=== PATIENT | male | born 1955 | race Caucasian/White ===

== ENCOUNTER 2017-08-29 12:39 | Inpatient (IN) | payer OTHER ==
[2017-08-29 14:33] VITALS: BMI 27.1
[2017-08-29] MEDS ORDERED: MAG HYDROX/AL HYDROX/SIMETH 30 ML UNIT-DOSE CUP PO PRN (16:16)
[2017-08-29] MEDS ORDERED: guaiFENesin/D-METHORPHAN HB 10 ML UNIT-DOSE CUPS PO PRN (16:16)
[2017-08-29] MEDS ORDERED: ACETAMINOPHEN 325 MG TABLET (FP) PO PRN (16:16)
[2017-08-29] MEDS ORDERED: IBUPROFEN 400 MG TABLET (FP) PO PRN (16:16)
[2017-08-29] MEDS ORDERED: chlordiazePOXIDE HCL 25 MG CAPSULE PO PRN (16:16)
[2017-08-29] MEDS ORDERED: hydrOXYzine PAMOATE 50 MG CAPSULE (FP) PO PRN (16:16)
[2017-08-29] MEDS ORDERED: P-EPHED 60MG/TRIPROLIDI 2.5MG TABLET PO PRN (16:16)
[2017-08-29] MEDS ORDERED: NICOTINE POLACRILEX 2 MG GUM BC PRN (16:16)
[2017-08-29] MEDS ORDERED: MENTHOL/PHENOL 1 EACH UD MM PRN (16:16)
[2017-08-29] MEDS ORDERED: LOPERAMIDE HCL 2 MG CAPSULE PO PRN (16:16)
[2017-08-29] MEDS ORDERED: MAGNESIUM HYDROX 2400MG/30ML ORAL SUSPENSION 30 ML CUP PO PRN (16:16)
[2017-08-29] MEDS ORDERED: MAGNESIUM CITRATE 300 ML BOTTLE PO PRN (16:16)
--- NOTE | 2017-08-29 16:25 | HP ---
CIWA Score - CIWA Score Nausea/Vomitin Muscle Tremors: 2 Anxiety: 4-Mod. Anxious/Guarded Agitation: 4-Moderately Restless Paroxysmal Sweats: 3 Orientation: 0-Oriented Tacttile Disturbances: 1-Very Mild Itch/Numbness Auditory Disturbances: 0-None Visual Disturbances: 0-None Headache: 1-Very Mild CIWA-Ar Total Score: 18 Admission ROS BHS - HPI Chief Complaint: alcohol withdrawal sx Allergies/Adverse Reactions: Allergies Allergy/AdvReac Type Severity Reaction Status Date / Time tramadol Allergy Severe Rash Verified 08/29/17 16:13 History of Present Illness: 61yo m w h/o chronic alcoholism and cocaine [facility] of alcohol withdrwal sx whne he does not drink, PMHX s/p ca prostate, htn, former smoker no si at this tiem , no h/o seizures or dts. Exam Limitations: No Limitations - Ebola screening Have you traveled outside of the country in the last 21 days: No Have you had contact with anyone from an Ebola affected area: No Have you been sick,other than usual withdrawal symptoms: No Do you have a fever: No - Review of Systems Constitutional: Chills, Diaphoresis, Night Sweats, Changes in sleep, Unintentional Wgt. Loss EENT: reports: No Symptoms Reported Respiratory: reports: No Symptoms reported Cardiac: reports: No Symptoms Reported GI: reports: Diarrhea, Nausea, Poor Appetite, Poor Fluid Intake, Vomiting, Indigestion, Abdominal cramping : reports: Frequency, Incontinence (s/p prstate surgery incontinnent), Urgency , Other (sexual dysfunction reported) Musculoskeletal: reports: No Symptoms Reported Integumentary: reports: Flushing, Sweating Neuro: reports: Headache, Numbness, Paresthesia, Tremors, Weakness Endocrine: reports: Increased Thirst Hematology: reports: No Symptoms Reported Psychiatric: reports: Judgement Intact, Mood/Affect Appropiate, Orientated x3, Anxious, Depressed Other Systems: Reviewed and Negative Patient History - Patient Medical History Hx Anemia: No Hx Asthma: No Hx Chronic Obstructive Pulmonary Disease (COPD): No Hx Cancer: Yes (ca prostate s/po surgery 2 years ago) Hx Cardiac Disorders: No Hx Congestive Heart Failure: No Hx Hypertension: Yes Hx Hypercholesterolemia: No Hx Pacemaker: No HX Cerebrovascular Accident: No Hx Seizures: No Hx Dementia: No Hx Diabetes: No Hx Gastrointestinal Disorders: Yes (GERD) Hx Liver Disease: No Hx Genitourinary Disorders: No Hx Sexually Transmitted Disorders: No Hx Renal Disease (ESRD): No Hx Thyroid Disease: No Hx Human Immunodeficiency Virus (HIV): No Hx Hepatitis C: No Hx Depression: Yes Hx Suicide Attempt: No (no si at this time) Hx Bipolar Disorder: No Hx Schizophrenia: No - Patient Surgical History Past Surgical History: Yes Hx Genitourinary Surgery: Yes (ca prostate 2 years ago [facility]) Hx Section: No Hx Orthopedic Surgery: Yes (ORIF x3 left ankle lower leg s/p trauma) Hx Hysterectomy: No Anesthesia Reaction: No - PPD History Previous Implant?: Yes Documented Results: Negative w/o proof Implanted On Prior R Admission?: Yes PPD to be Administered?: Yes - Reproductive History Patient is a Female of Child Bearing Age (11 -55 yrs old): No Patient : No - Smoking Cessation Smoking history: Former smoker Have you smoked in the past 12 months: No If you are a former smoker, when did you quit?: 5 years gianni Hx Chewing Tobacco Use: No Initiated information on smoking cessation: No 'Breaking Loose' booklet given: 08/29/17 - Substance & Tx. History Hx Alcohol Use: Yes Hx Substance Use: Yes Substance Use Type: Alcohol, Cocaine Hx Substance Use Treatment: Yes (1st admission [facility]) - Substances Abused Cocaine Route: Inhalation Frequency: 1-2 times per week Amount used: $40 Age of first use: 51 Date of Last Use: 08/29/17 Alcohol-beer Route: Oral Frequency: Daily Amount used: 1-6 pk. Age of first use: 19 Date of Last Use: 08/29/17 Family Disease History - Family Disease History Family Disease History: Diabetes: Brother, Sister Admission Physical Exam BHS - Vital Signs Vital Signs: Vital Signs - 24 hr 08/29/17 14:28 Temperature 96.1 F L Pulse Rate 61 Respiratory 18 Rate Blood Pressure 144/85 - Physical General Appearance: Yes: Nourished, Appropriately Dressed, Disheveled, Mild Distress, Thin, Tremorous, Irritable, Sweating, Anxious HEENTM: Yes: Within Normal Limits, EOMI, Hearing grossly Normal, Normal ENT Inspection, Normocephalic, Normal Voice, OWEN, Pharynx Normal Respiratory: Yes: Within Normal Limits, Chest Non-Tender, Lungs Clear, Normal Breath Sounds, No Respiratory Distress, No Accessory Muscle Use Neck: Yes: Within Normal Limits, No masses,lesions,Nodules, Supple, Trachea in good position Breast: Yes: Breast Exam Deferred Cardiology: Yes: Within Normal Limits, Regular Rhythm, Regular Rate, S1, S2 Abdominal: Yes: Normal Bowel Sounds, Non Tender, Flat, Soft, Increased Bowel Sounds, Protuberent, Distended Genitourinary: Yes: Frequency, Uregency, Dribblimg, Incontinient, Other (s/p prostate surgery wears pampers) Back: Yes: Within Normal Limits, Normal Inspection Musculoskeletal: Yes: Within Normal Limits, full range of Motion, Gait Steady Extremities: Yes: Normal Capillary Refill, Normal Range of Motion, Non-Tender, Tremors 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 intact, Fully Oriented, Alert, Motor Strength 5/5, Normal Response, Depressed Affect Integumentary: Yes: Normal Color, Warm, Diaphoresis, Moist Lymphatic: Yes: Within Normal Limits - Addiitonal Findings: withdrawal sx - Diagnostic (1) Alcohol dependence with uncomplicated withdrawal Current Visit: Yes Status: Acute (2) Cocaine abuse Current Visit: Yes Status: Acute (3) Prostate cancer Current Visit: Yes Status: Acute (4) Nicotine dependence in remission Current Visit: Yes Status: Acute (5) Depression Current Visit: Yes Status: Acute (6) Essential (primary) hypertension Current Visit: Yes Status: Acute (7) GERD (gastroesophageal reflux disease) Current Visit: Yes Status: Acute Cleared for Admission [facility] - Detox or Rehab [facility] Level of Care: Medically Managed Detox Regimen/Protocol: Librium [facility] Breath Alcohol Content Breath Alcohol Content: 0 Urine Drug Screen - Results Drug Screen Negative: No Urine Drug Screen Results: ELIANE-Cocaine
[2017-08-29] MEDS ORDERED: NICOTINE 14 MG/24 HOURS TOPICAL PATCH TD SCH (16:30)
[2017-08-29] MEDS ORDERED: chlordiazePOXIDE HCL 25 MG CAPSULE PO ONE (17:45)
[2017-08-29] MEDS: THIAMINE HCL 100 MG TABLET (FP) PO SCH (22:42)
[2017-08-29] MEDS: TAMSULOSIN HCL 0.4 MG CAP.ER.24H (FP) PO SCH (22:42)
[2017-08-29] MEDS: chlordiazePOXIDE HCL 25 MG CAPSULE PO SCH (22:42)
[2017-08-30 00:28] LABS: URINE APPEARANCE CLEAR; URINE BILIRUBIN NEGATIVE (NEGATIVE); URINE BLOOD NEGATIVE (NEGATIVE); URINE COLOR STRAW; URINE GLUCOSE (UA) NEGATIVE (NEGATIVE); URINE KETONE NEGATIVE (NEGATIVE); URINE LEUK ESTERASE NEGATIVE (NEGATIVE); URINE NITRITE NEGATIVE (NEGATIVE); URINE PROTEIN NEGATIVE (NEGATIVE); URINE UROBILINOGEN NEGATIVE mg/dL (0.2-1.0)
[2017-08-30] MEDS: chlordiazePOXIDE HCL 25 MG CAPSULE PO SCH ×4 (05:55→22:38)
[2017-08-30] MEDS: PRENATAL VITAMINS W/ FOLIC ACID TABLET (FP) PO SCH (10:32)
[2017-08-30 11:17] LABS: HEMATOCRIT 39.3 % (35.4-49); HEMOGLOBIN 14.1 GM/dL (11.7-16.9); MCH 35.4 pg (25.7-33.7); MCHC 35.8 g/dl (32.0-35.9); MEAN CELL VOLUME 99.1 fl (80-96); MEAN PLT VOLUME 8.2 fl (7.5-11.1); PLATELET COUNT 88 K/MM3 (134-434); RBC 3.97 M/mm3 (4.00-5.60); RDW 12.3 % (11.9-15.9); WHITE BLOOD COUNT 3.4 K/mm3 (4.0-10.0)
[2017-08-30 11:18] LABS: ALBUMIN 2.9 g/dl (3.4-5.0); ANION GAP 7 (8-16); BILIRUBIN,TOTAL 0.9 mg/dL (0.2-1.0); CALCIUM 7.6 mg/dL (8.5-10.1); CHLORIDE 105 mmol/L (98-107); CO2 27 mmol/L (21-32); CREATININE 0.6 mg/dL (0.7-1.3); GLUCOSE,RANDOM 138 mg/dL (74-106); SODIUM 139 mmol/L (136-145)
[2017-08-30 11:20] LABS: ALK PHOS 300 U/L (45-117)
--- NOTE | 2017-08-30 11:56 | EKG ---
Test Reason : Blood Pressure : / mmHG Vent. Rate : 062 BPM Atrial Rate : 062 BPM P-R Int : 210 ms QRS Dur : 114 ms QT Int : 402 ms P-R-T Axes : 043 -55 021 degrees QTc Int : 408 ms SINUS RHYTHM WITH 1ST DEGREE A-V BLOCK INCOMPLETE RIGHT BUNDLE BRANCH BLOCK LEFT ANTERIOR FASCICULAR BLOCK SEPTAL INFARCT , AGE UNDETERMINED ABNORMAL ECG NO PREVIOUS ECGS AVAILABLE Confirmed by MD HERON, LISET ([id number]) on 08/30/2017 11:55:46 AM Referred By: Confirmed By:LISET SHELBY MD
--- NOTE | 2017-08-30 12:10 | CONSULT ---
[facility] Psychiatric Consult - Data Date of interview: 08/30/17 Admission source: [facility] Identifying data: First admission to [facility] for this 61 y/o Citizen Of [place]-born male seeking detox treatment on for alcohol and cocaine dependence.Patient is ,a father of four,homeless,unemployed and supported on Social Security benefits. Substance Abuse History: Confirmed by patient in this interview.Refer to this section of [facility] report for details : Smoking history: Former smoker. Have you smoked in the past 12 months: No. If you are a former smoker, when did you quit ?: 5 years gianni. Hx Chewing Tobacco Use: No. Initiated information on smoking cessation: No. 'Breaking Loose' booklet given: 08/29/17. - Substance & Tx. History. Hx Alcohol Use: Yes. Hx Substance Use: Yes. Substance Use Type: Alcohol, Cocaine. Hx Substance Use Treatment: Yes (1st admission [facility]). - Substances Abused. Cocaine. Route: Inhalation. Frequency: 1-2 times per week. Amount used: $40. Age of first use: 51. Date of Last Use: 08/29/17. * * Alcohol-beer. Route: Oral. Frequency: Daily. Amount used: 1-6 pk. Age of first use: 19. Date of Last Use: 08/29/17 Medical History: Hypertension,GERD,past surgery for prostatic cancer (two years ago) and orthosurgery for fracture of left ankle (open reduction/internal fixation). Psychiatric History: Patient denies. Physical/Sexual Abuse/Trauma History: Patient admits to several losses in his family (deaths of brothers,parents) over the years.No complaint of nightmares or flashbacks.Coping fairly well. Additional Comment: Urine Drug Screen Results: ELIANE-Cocaine.Noted. Mental Status Exam - Mental Status Exam Alert and Oriented to: Time, Place, Person Cognitive Function: Good Patient Appearance: Well Groomed Mood: Withdrawn, Hopeful Affect: Appropriate, Normal Range Patient Behavior: Fatigued, Appropriate, Cooperative Speech Pattern: Clear (more comfortable in amharic ; very limited yoruba proficiency), Appropriate Voice Loudness: Normal Thought Process: Intact, Goal Oriented Thought Disorder: Not Present Hallucinations: Denies Suicidal Ideation: Denies Homicidal Ideation: Denies Insight/Judgement: Poor Sleep: Poorly, Difficulty falling asleep Appetite: Good Muscle strength/Tone: Normal Gait/Station: Normal Psychiatric Findings - Problem List (Wells 1, 2,3) (1) Alcohol dependence with uncomplicated withdrawal Status: Acute (2) Cocaine abuse Status: Chronic (3) Nicotine dependence in remission Status: Suspected Qualifiers: Nicotine product type: cigarettes Qualified Code(s): F17.211 - Nicotine dependence, cigarettes, in remission (4) Insomnia Status: Chronic - Initial Treatment Plan Initial Treatment Plan: Psychoeducation.Sleep hygiene.Detoxification in progress.Ambien 10 mg po hs prn.Ordered.Patient is informed of the potential for parasomnias (sleep-walking).Mr Galarza agrees with this careplan.Observation.
[2017-08-30 13:24] LABS: POTASSIUM 3.7 mmol/L (3.5-5.1)
[2017-08-30 13:44] LABS: BLOOD UREA NITROGEN 15 mg/dL (7-18); TOT PROT 7.3 g/dl (6.4-8.2)
--- NOTE | 2017-08-30 15:06 | PN ---
S CIWA - CIWA Score Nausea/Vomitin-No Nausea/No Vomiting Muscle Tremors: 2 Anxiety: 4-Mod. Anxious/Guarded Agitation: 2 Paroxysmal Sweats: 3 Orientation: 0-Oriented Tacttile Disturbances: 2-Mild Itch/Numbness/Burn Auditory Disturbances: 0-None Visual Disturbances: 0-None Headache: 4-Moderately Severe CIWA-Ar Total Score: 17 BHS Progress Note (SOAP) Subjective: Sweating, H/A, Tremors, Body Aches. Objective: PATIENT A & O X 3, OBSERVED AMBULATING ON UNIT. NO ACUTE DISTRESS. 08/30/17 15:02 Vital Signs Temperature 96.7 F L 08/30/17 13:53 Pulse Rate 65 08/30/17 13:53 Respiratory Rate 18 08/30/17 13:53 Blood Pressure 137/93 08/30/17 13:53 O2 Sat by Pulse Oximetry (%) Laboratory Tests 08/29/17 08/30/17 08/30/17 21:22 07:50 07:50 WBC 3.4 L RBC 3.97 L Hgb 14.1 Hct 39.3 MCV 99.1 H MCH 35.4 H MCHC 35.8 RDW 12.3 Plt Count 88 L MPV 8.2 Sodium 139 Potassium 3.7 Chloride 105 Carbon Dioxide 27 Anion Gap 7 L BUN 15 Creatinine 0.6 L Creat Clearance w eGFR > 60 Random Glucose 138 H Calcium 7.6 L Total Bilirubin 0.9 AST TNP ALT TNP Alkaline Phosphatase 300 H Total Protein 7.3 Albumin 2.9 L Urine Color Straw Urine Appearance Clear Urine pH 5.0 Ur Specific [place] 1.006 Urine Protein Negative Urine Glucose (UA) Negative Urine Ketones Negative Urine Blood Negative Urine Nitrite Negative Urine Bilirubin Negative Urine Urobilinogen Negative Ur Leukocyte Esterase Negative LABS NOTED. Assessment: 08/30/17 15:02 WITHDRAWAL SYMPTOMS. Plan: CONTINUE DETOX. INCREASE DAILY PO FLUID INTAKE. BGM ACBK FOR ELEVATED ADMISSION RANDOM GLUCOSE LEVEL. HFP ON 09/01/2017 FOR ADMISSION HEPATIC ABNORMALITIES.
[2017-08-30] MEDS: TAMSULOSIN HCL 0.4 MG CAP.ER.24H (FP) PO SCH (22:38)
[2017-08-30] MEDS: ZOLPIDEM TARTRATE 5 MG TABLET PO PRN (22:38)
[2017-08-30] MEDS: THIAMINE HCL 100 MG TABLET (FP) PO SCH (22:38)
[2017-08-31] MEDS: chlordiazePOXIDE HCL 25 MG CAPSULE PO SCH ×3 (05:48→18:12)
[2017-08-31] MEDS: PRENATAL VITAMINS W/ FOLIC ACID TABLET (FP) PO SCH (10:42)
--- NOTE | 2017-08-31 14:30 | EKG ---
Test Reason : Blood Pressure : / mmHG Vent. Rate : 066 BPM Atrial Rate : 066 BPM P-R Int : 198 ms QRS Dur : 112 ms QT Int : 412 ms P-R-T Axes : 027 -45 010 degrees QTc Int : 431 ms NORMAL SINUS RHYTHM INCOMPLETE RIGHT BUNDLE BRANCH BLOCK LEFT ANTERIOR FASCICULAR BLOCK ABNORMAL ECG Confirmed by MD HERON, LISET ([id number]) on 08/31/2017 2:29:35 PM Referred By: Confirmed By:LISET SHELBY MD
--- NOTE | 2017-08-31 15:06 | PN ---
[facility] CIWA - CIWA Score Nausea/Vomitin-Int. Nausea w/Dry Heave Muscle Tremors: 4-Moderate,w/Arms Extend Anxiety: 3 Agitation: 3 Paroxysmal Sweats: 3 Orientation: 0-Oriented Tacttile Disturbances: 1-Very Mild Itch/Numbness Auditory Disturbances: 0-None Visual Disturbances: 0-None Headache: 0-None Present CIWA-Ar Total Score: 18 BHS Progress Note (SOAP) Subjective: Dizziness, sweating, anxious Objective: 08/31/17 15:04 Last Vital Signs Temp Pulse Resp BP Pulse Ox 98.5 F 77 18 130/86 08/31/17 09:52 08/31/17 09:52 08/31/17 09:52 08/31/17 09:52 Laboratory Tests 08/29/17 08/30/17 08/30/17 21:22 07:50 07:50 WBC 3.4 L RBC 3.97 L Hgb 14.1 Hct 39.3 MCV 99.1 H MCH 35.4 H MCHC 35.8 RDW 12.3 Plt Count 88 L MPV 8.2 Sodium 139 Potassium 3.7 Chloride 105 Carbon Dioxide 27 Anion Gap 7 L BUN 15 Creatinine 0.6 L Creat Clearance w eGFR > 60 POC Glucometer Random Glucose 138 H Calcium 7.6 L Total Bilirubin 0.9 AST TNP ALT TNP Alkaline Phosphatase 300 H Total Protein 7.3 Albumin 2.9 L Urine Color Straw Urine Appearance Clear Urine pH 5.0 Ur Specific [place] 1.006 Urine Protein Negative Urine Glucose (UA) Negative Urine Ketones Negative Urine Blood Negative Urine Nitrite Negative Urine Bilirubin Negative Urine Urobilinogen Negative Ur Leukocyte Esterase Negative RPR Titer 08/30/17 08/31/17 07:50 06:51 WBC RBC Hgb Hct MCV MCH MCHC RDW Plt Count MPV Sodium Potassium Chloride Carbon Dioxide Anion Gap BUN Creatinine Creat Clearance w eGFR POC Glucometer 123 Random Glucose Calcium Total Bilirubin AST ALT Alkaline Phosphatase Total Protein Albumin Urine Color Urine Appearance Urine pH Ur Specific [place] Urine Protein Urine Glucose (UA) Urine Ketones Urine Blood Urine Nitrite Urine Bilirubin Urine Urobilinogen Ur Leukocyte Esterase RPR Titer Nonreactive Labs noted Assessment: 08/31/17 15:05 Withdrawal symptoms Plan: Continue detox Encouraged to drink more water for hydration
[2017-08-31] MEDS: THIAMINE HCL 100 MG TABLET (FP) PO SCH (22:34)
[2017-08-31] MEDS: ZOLPIDEM TARTRATE 5 MG TABLET PO PRN (22:34)
[2017-08-31] MEDS: TAMSULOSIN HCL 0.4 MG CAP.ER.24H (FP) PO SCH (22:34)
[2017-08-31] MEDS: chlordiazePOXIDE 5 MG CAPSULE PO SCH (22:35)
[2017-09-01] MEDS: chlordiazePOXIDE 5 MG CAPSULE PO SCH ×3 (06:08→17:42)
[2017-09-01 10:25] LABS: ALBUMIN 2.8 g/dl (3.4-5.0); BILIRUBIN,DIRECT 0.2 mg/dL (0.0-0.2)
[2017-09-01 10:27] LABS: BILIRUBIN,TOTAL 0.5 mg/dL (0.2-1.0); TOT PROT 6.9 g/dl (6.4-8.2)
[2017-09-01] MEDS: PRENATAL VITAMINS W/ FOLIC ACID TABLET (FP) PO SCH (10:33)
--- NOTE | 2017-09-01 12:26 | PN ---
BHS Progress Note (SOAP) Subjective: SLIGHT ANXIETY,SWEATS,FATIGUE. Objective: 09/01/17 12:28 Vital Signs Temperature 97.5 F L 09/01/17 09:51 Pulse Rate 80 09/01/17 09:51 Respiratory Rate 18 09/01/17 09:51 Blood Pressure 138/85 09/01/17 09:51 O2 Sat by Pulse Oximetry (%) Laboratory Last Values WBC 3.4 K/mm3 (4.0-10.0) L 08/30/17 07:50 RBC 3.97 M/mm3 (4.00-5.60) L 08/30/17 07:50 Hgb 14.1 GM/dL (11.7-16.9) 08/30/17 07:50 Hct 39.3 % (35.4-49) 08/30/17 07:50 MCV 99.1 fl (80-96) H 08/30/17 07:50 MCH 35.4 pg (25.7-33.7) H 08/30/17 07:50 MCHC 35.8 g/dl (32.0-35.9) 08/30/17 07:50 RDW 12.3 % (11.9-15.9) 08/30/17 07:50 Plt Count 88 K/MM3 (134-434) L 08/30/17 07:50 MPV 8.2 fl (7.5-11.1) 08/30/17 07:50 Sodium 139 mmol/L (136-145) 08/30/17 07:50 Potassium 3.7 mmol/L (3.5-5.1) 08/30/17 07:50 Chloride 105 mmol/L (98-107) 08/30/17 07:50 Carbon Dioxide 27 mmol/L (21-32) 08/30/17 07:50 Anion Gap 7 (8-16) L 08/30/17 07:50 BUN 15 mg/dL (7-18) 08/30/17 07:50 Creatinine 0.6 mg/dL (0.7-1.3) L 08/30/17 07:50 Creat Clearance w eGFR > 60 (>60) 08/30/17 07:50 POC Glucometer 136 UNITS (80-120) 09/01/17 06:10 Random Glucose 138 mg/dL (74-106) H 08/30/17 07:50 Calcium 7.6 mg/dL (8.5-10.1) L 08/30/17 07:50 Total Bilirubin 0.5 mg/dL (0.2-1.0) D 09/01/17 07:00 Direct Bilirubin 0.2 mg/dL (0.0-0.2) 09/01/17 07:00 AST 77 U/L (15-37) H 09/01/17 07:00 ALT 67 U/L (12-78) 09/01/17 07:00 Alkaline Phosphatase 338 U/L (45-117) H 09/01/17 07:00 Total Protein 6.9 g/dl (6.4-8.2) 09/01/17 07:00 Albumin 2.8 g/dl (3.4-5.0) L 09/01/17 07:00 Urine Color Straw 08/29/17 21:22 Urine Appearance Clear 08/29/17 21:22 Urine pH 5.0 (5.0-8.0) 08/29/17 21:22 Ur Specific [place] 1.006 (1.001-1.035) 08/29/17 21:22 Urine Protein Negative (NEGATIVE) 08/29/17 21:22 Urine Glucose (UA) Negative (NEGATIVE) 08/29/17 21:22 Urine Ketones Negative (NEGATIVE) 08/29/17 21:22 Urine Blood Negative (NEGATIVE) 08/29/17 21:22 Urine Nitrite Negative (NEGATIVE) 08/29/17 21:22 Urine Bilirubin Negative (NEGATIVE) 08/29/17 21:22 Urine Urobilinogen Negative mg/dL (0.2-1.0) 08/29/17 21:22 Ur Leukocyte Esterase Negative (NEGATIVE) 08/29/17 21:22 RPR Titer Nonreactive (NONREACTIVE) 08/30/17 07:50 Assessment: 09/01/17 12:28 WITHDRAWAL SX Plan: CONTINUE DETOX
[2017-09-01] MEDS: chlordiazePOXIDE HCL 10 MG CAPSULE PO SCH (22:10)
[2017-09-01] MEDS: TAMSULOSIN HCL 0.4 MG CAP.ER.24H (FP) PO SCH (22:10)
[2017-09-01] MEDS: THIAMINE HCL 100 MG TABLET (FP) PO SCH (22:10)
[2017-09-01] MEDS: ZOLPIDEM TARTRATE 5 MG TABLET PO PRN (22:10)
[2017-09-02] MEDS: chlordiazePOXIDE HCL 10 MG CAPSULE PO SCH ×2 (05:32→10:21)
[2017-09-02 06:20] VITALS: BP 148/86; PULSE 81; TEMP 97.4
[2017-09-02] MEDS: PRENATAL VITAMINS W/ FOLIC ACID TABLET (FP) PO SCH (10:21)
--- NOTE | 2017-09-02 13:13 | DS ---
[facility] Detox Discharge Summary Admission Date: 08/29/17 Discharge Date: 09/02/17 - History Present History: Alcohol Dependence Additional Comments: DETOX COMPLETED. ALERT O X 3. NAD. Pertinent Past History: SEE DX BELOW - Physical Exam Results Vital Signs: Vital Signs Temperature 97.4 F L 09/02/17 06:19 Pulse Rate 81 09/02/17 06:19 Respiratory Rate 21 09/02/17 06:19 Blood Pressure 148/86 09/02/17 06:19 O2 Sat by Pulse Oximetry (%) Pertinent Admission Physical Exam Findings: WITHDRAWAL SX Laboratory Last Values WBC 3.4 K/mm3 (4.0-10.0) L 08/30/17 07:50 RBC 3.97 M/mm3 (4.00-5.60) L 08/30/17 07:50 Hgb 14.1 GM/dL (11.7-16.9) 08/30/17 07:50 Hct 39.3 % (35.4-49) 08/30/17 07:50 MCV 99.1 fl (80-96) H 08/30/17 07:50 MCH 35.4 pg (25.7-33.7) H 08/30/17 07:50 MCHC 35.8 g/dl (32.0-35.9) 08/30/17 07:50 RDW 12.3 % (11.9-15.9) 08/30/17 07:50 Plt Count 88 K/MM3 (134-434) L 08/30/17 07:50 MPV 8.2 fl (7.5-11.1) 08/30/17 07:50 Sodium 139 mmol/L (136-145) 08/30/17 07:50 Potassium 3.7 mmol/L (3.5-5.1) 08/30/17 07:50 Chloride 105 mmol/L (98-107) 08/30/17 07:50 Carbon Dioxide 27 mmol/L (21-32) 08/30/17 07:50 Anion Gap 7 (8-16) L 08/30/17 07:50 BUN 15 mg/dL (7-18) 08/30/17 07:50 Creatinine 0.6 mg/dL (0.7-1.3) L 08/30/17 07:50 Creat Clearance w eGFR > 60 (>60) 08/30/17 07:50 POC Glucometer 209 UNITS (80-120) 09/02/17 05:34 Random Glucose 138 mg/dL (74-106) H 08/30/17 07:50 Calcium 7.6 mg/dL (8.5-10.1) L 08/30/17 07:50 Total Bilirubin 0.5 mg/dL (0.2-1.0) D 09/01/17 07:00 Direct Bilirubin 0.2 mg/dL (0.0-0.2) 09/01/17 07:00 AST 77 U/L (15-37) H 09/01/17 07:00 ALT 67 U/L (12-78) 09/01/17 07:00 Alkaline Phosphatase 338 U/L (45-117) H 09/01/17 07:00 Total Protein 6.9 g/dl (6.4-8.2) 09/01/17 07:00 Albumin 2.8 g/dl (3.4-5.0) L 09/01/17 07:00 Urine Color Straw 08/29/17 21:22 Urine Appearance Clear 08/29/17 21:22 Urine pH 5.0 (5.0-8.0) 08/29/17 21:22 Ur Specific [place] 1.006 (1.001-1.035) 08/29/17 21:22 Urine Protein Negative (NEGATIVE) 08/29/17 21:22 Urine Glucose (UA) Negative (NEGATIVE) 08/29/17 21:22 Urine Ketones Negative (NEGATIVE) 08/29/17 21:22 Urine Blood Negative (NEGATIVE) 08/29/17 21:22 Urine Nitrite Negative (NEGATIVE) 08/29/17 21:22 Urine Bilirubin Negative (NEGATIVE) 08/29/17 21:22 Urine Urobilinogen Negative mg/dL (0.2-1.0) 08/29/17 21:22 Ur Leukocyte Esterase Negative (NEGATIVE) 08/29/17 21:22 RPR Titer Nonreactive (NONREACTIVE) 08/30/17 07:50 - Treatment Hospital Course: Detox Protocol Followed, Detoxed Safely, Responded well, Discharged Condition Good, Rehab Referral Accepted Patient has Accepted a Rehab Referral to: [facility] - Medication Discharge Medications: Ambulatory Orders Folic Acid - 1 mg PO DAILY 08/29/17 Omeprazole 40 mg PO DAILY 08/29/17 Tamsulosin HCl [Flomax] 0.4 mg PO HS 08/29/17 Thiamine Mononitrate [Vitamin B-1] 100 mg PO DAILY 08/29/17 - Diagnosis (1) Alcohol dependence with uncomplicated withdrawal Status: Acute (2) GERD (gastroesophageal reflux disease) Status: Chronic Qualifiers: Esophagitis presence: esophagitis presence not specified Qualified Code(s) : K21.9 - Gastro-esophageal reflux disease without esophagitis (3) Essential (primary) hypertension Status: Chronic (4) Nicotine dependence in remission Status: Suspected Qualifiers: Nicotine product type: cigarettes Qualified Code(s): F17.211 - Nicotine dependence, cigarettes, in remission (5) Prostate cancer Status: Chronic - AMA Did Patient Leave Against Medical Advice: No
== END 2017-09-02 12:28 | disposition home or self-care (01) | DRG 897 ==
LOC: YASAS 12:39 → Y3N 17:27
PROVIDERS: ADMIT Internal Medicine; ATTEND Internal Medicine
PROC: HZ2ZZZZ Detoxification Services for Substance Abuse Treatment (ICD-10-PCS; principal; 2017-08-29)
DX: F10.20 Alcohol dependence, uncomplicated (principal); F32.9 Major depressive disorder, single episode, unspecified; F17.211 Nicotine dependence, cigarettes, in remission; F14.10 Cocaine abuse, uncomplicated; I10 Essential (primary) hypertension; K21.9 Gastro-esophageal reflux disease without esophagitis; Z85.46 Personal history of malignant neoplasm of prostate; G47.00 Insomnia, unspecified; Z88.8 Allergy status to other drugs, medicaments and biological substances
CPT/HCPCS: 36415; 80053; 80076; 81003; 82962; 85027; 86593; 93005; 93010